=== PATIENT | male | born 1935 | race Caucasian/White ===

== ENCOUNTER → 2016-12-18 | Outpatient (CLI) | payer OTHER, MEDICARE ==
[~2016-12-18] MED LIST: APR10 PO; ASPCH81X PO; LISI-725 PO; METO25TA3 PO; MULT-506 PO; SIMV20TA2 PO
[2016-12-18 13:55] VITALS: BP 114/56; PULSE 58; TEMP 36.4; O2SAT 96
--- NOTE | 2016-12-18 15:25 | Radiation Oncology Follow-Up ---
Radiation Oncology Follow-Up Date of Visit Dec 18, 2016. (Clari Tavarez PA-C) Reason For Visit One-month follow-up (Clari Tavarez PA-C) Radiation Completion Date finished 11-13-2016 (Clari Tavarez PA-C) Diagnosis (1) B-cell lymphoma of extranodal site Status: Resolved Location: right eye Stage: ll Permanent Comment: STAGING: Right eye, B-cell lymphoma Status post completion of radiation therapy 11/13/2016. Received 3,000 cGy Last Edited By: Clari Tavarez on Nov 21, 2016 08:03 (Clari Tavarez PA-C) History of Present Illness Mr. Love is a 81-year-old gentleman with a previous diagnosis of low-grade non-Hodgkin's lymphoma diagnosed in 1999. He has had no active treatment for his lymphoma and has done well. He has had a right supraclavicular lymph node excised in the past. More recently, the patient was evaluated by Dr. Baltazar, his center receptionist, who did notice a cystic lesion in the right superior conjunctiva underneath the right eyelid. Dr. Baltazar did recommend an excisional biopsy which was completed on 08/20/2016 and was sent down for second opinion consultation and confirmed to be B-cell lymphoma. The patient subsequently had a PET/CT scan on 09/12/2016 which did reveal an indeterminate left cervical to lymph node which could potentially be inflammatory/reactive versus neoplastic but no other evidence of metabolic uptake. The patient was seen by Dr. Bee who recommended radiation therapy to the right conjunctiva and observation of the right cervical lymph node. We are now seeing the patient in consultation to discuss the role of radiation therapy. Overall, the patient is doing relatively well. He denies any visual disturbances at this point. He states he has no constitutional night sweats, weight loss or fevers. He has no other complaints. He was treated with radiation alone. This was completed 11/13/2016. He received 3 ,000 cGy. (Clari Tavarez PA-C) Interim History He has been doing well over the past month. He did have some excess tearing of the eye. He had some mild feeling of irritation. He did notice swelling in the lower eyelid in the morning which resolved throughout the day. He had no purulent drainage. No signs of infection. He feels he may have lost a few eyelashes. There were no changes the eyebrows. No problems with nasal drainage. He was seen today by his center receptionist. Examination was performed and he was told that there is no evidence of lymphoma recurrence. There was some irritated changes in the right lower canalicular system. There was some blockage of his lacrimal duct and this was flushed. He had some turning in of a few of his eyelashes which were removed by the center receptionist. See his scanned in note. (Clari Tavarez PA-C) Allergies Coded Allergies: Iodine (Verified Allergy, Unknown, SWELLING, 08/20/16) Iodinated Diagnostic Agents (Verified Adverse Reaction, Severe, Swelling , 09/25/16) Home Medications Scheduled Aspirin (Aspirin Chewable), 81 MG PO QPM Hydralazine HCl (Hydralazine HCl), 1 TAB PO BID Lisinopril (Zestril), 20 MG PO QPM Metoprolol Succ (Toprol Xl) (Toprol-Xl), 0.5 TAB PO QAM Multivitamin (Multivitamin), 1 TAB PO QAM Simvastatin (Zocor), 20 MG PO QPM Review of Systems Gastrointestinal: Symptoms: WNL Oral: Symptoms: No Problems Respiratory: Symptoms: WNL Urinary: Symptoms: Nocturia Comments: nocturia times 1 Skin: Other Skin Symptoms: right eye slightly pink (Clari Tavarez PA-C) Physical Exam Vital Signs Date Time Temp Pulse Resp B/P Pulse Ox O2 Delivery O2 Flow Rate FiO2 12/18/16 13:55 36.4 58 16 114/56 96 Pain: Side: Bilateral Patient Pain Scale: 0 - 10 Initial Pain Intensity: 0.0 General Appearance: no apparent distress Eyes: normal inspection, EOMI, + pertinent finding (there is very mild erythema of the conjunctiva on the inner aspect of the upper right eyelid. There are no visible lesions noted. There is no exudate. Currently he has no edema of the lower eyelid.) ENT: normal ENT inspection, hearing grossly normal (Clari Tavarez PA-C) Assessment & Plan Plan: Patient was also seen and examined by Dr. Perez. He will be seeing Dr. Bee in 2 weeks. Recheck scanning and laboratory studies per Dr. Bee. Continue follow-up with the center receptionist. We asked him to return to our office in 9 months. He may call if he has any questions or concerns in the interim. (Clari Tavarez PA-C) I agree with note created by Clari Tavarez PA-C. I reviewed the patient's chart and information with her. I have examined and evaluated the patient. I reviewed relevant clinical information and answered the patient's and/or family' s questions. (Veeral. Perez MD) Total Time In Follow-Up I spent 15 minutes speaking to the patient performing examination. I spent 15 minutes reviewing information in completing this note. (Clari Tavarez PA-C) I spent 15 minutes examining and counseling the patient. (Veeral. Perez MD) Copy To Nicolas Santillan MD; Ismael Grimes III, M.D.; Chino Bee M.D.
== END | disposition home or self-care (01) ==
LOC: C.ONC 13:45
PROVIDERS: ATTEND Radiology Radiation Oncology
DX: Z08 Encounter for follow-up examination after completed treatment for malignant neoplasm (principal); Z92.3 Personal history of irradiation; Z85.72 Personal history of non-Hodgkin lymphomas

== ENCOUNTER → 2017-08-13 | Outpatient (CLI) | payer OTHER, MEDICARE ==
[2017-08-13 13:36] VITALS: BP 132/64; PULSE 56; TEMP 37; O2SAT 97
--- NOTE | 2017-08-13 14:29 | Radiation Oncology Follow-Up ---
Radiation Oncology Follow-Up Date of Visit Aug 13, 2017. Reason For Visit 6 month follow-up Radiation Completion Date 11/13/16 Diagnosis (1) B-cell lymphoma of extranodal site Status: Resolved Stage: ll Permanent Comment: STAGING: Right eye, B-cell lymphoma Status post completion of radiation therapy 11/13/2016. Received 3,000 cGy Last Edited By: Clari Tavarez on Nov 21, 2016 08:03 History of Present Illness Mr. Love has a previous diagnosis of low-grade non-Hodgkin's lymphoma diagnosed in 1999. He has had no active treatment for his lymphoma and has done well. He has had a right supraclavicular lymph node excised in the past. More recently, the patient was evaluated by Dr. Baltazar, his physician extender, who did notice a cystic lesion in the right superior conjunctiva underneath the right eyelid. Dr. Baltazar did recommend an excisional biopsy which was completed on 08/20/2016 and was sent down for second opinion consultation and confirmed to be B-cell lymphoma. The patient subsequently had a PET/CT scan on 2015 which did reveal an indeterminate left cervical to lymph node which could potentially be inflammatory/reactive versus neoplastic but no other evidence of metabolic uptake. The patient was seen by Dr. Bee who recommended radiation therapy to the right conjunctiva and observation of the right cervical lymph node. We are now seeing the patient in consultation to discuss the role of radiation therapy. Overall, the patient is doing relatively well. He denies any visual disturbances at this point. He states he has no constitutional night sweats, weight loss or fevers. He has no other complaints. He was treated with radiation alone. This was completed 11/13/2016. He received 3 ,000 cGy Interim History He's been followed closely by his physician extender. He does have problems with excess tearing from the right eye. He has blockage of the tear duct. On 2 occasions since our last visit this has been opened. He describes a saline lavage. The ductal will stay open for approximately 2 days and then will close. It has been suggested that he may benefit from placement of a stent. The patient declines to undergo placement of the lacrimal duct stent. His vision is unchanged. He did lose a small portion of the eyebrow which then grew back over time. There were minimal changes to the eyelashes. Allergies Coded Allergies: Iodine (Verified Allergy, Unknown, SWELLING, 08/20/16) Iodinated Diagnostic Agents (Verified Adverse Reaction, Severe, Swelling , 09/25/16) Home Medications Scheduled Aspirin (Aspirin Chewable), 81 MG PO QPM Hydralazine HCl (Hydralazine HCl), 1 TAB PO BID Lisinopril (Zestril), 20 MG PO QPM Metoprolol Succ (Toprol Xl) (Toprol-Xl), 0.5 TAB PO QAM Multivitamin (Multivitamin), 1 TAB PO QAM Simvastatin (Zocor), 20 MG PO QPM Review of Systems Gastrointestinal: Symptoms: WNL Oral: Symptoms: No Problems Respiratory: Symptoms: WNL Urinary: Symptoms: WNL Skin: Symptoms: No Problems Physical Exam Vital Signs Date Time Temp Pulse Resp B/P (MAP) Pulse Ox O2 Delivery O2 Flow Rate FiO2 08/13/17 13:36 37.0 56 12 132/64 97 Fatigue: None General Appearance: no apparent distress Eyes: normal inspection, EOMI, + pertinent finding (there is no erythema of the medial conjunctiva or the inner aspect of the upper eyelid.) ENT: normal ENT inspection, hearing grossly normal Respiratory/Chest: lungs clear Cardiovascular: regular rate, rhythm, no gallop, no murmur Assessment & Plan Plan: Continue regular follow-up with Dr. Bee, Dr. Santillan, and Dr. Grimes. Recheck laboratory studies in scanning per Dr. Bee. He was seen and examined by Dr. Perez. We asked him to return to our office in 1 year. He may call if he has any questions or concerns in the interim. Assessment & Plan (Attending) ADDENDUM: I agree with note created by Clari Tavarez PA-C. I reviewed the patient's chart and information with her. I have examined and evaluated the patient. I reviewed relevant clinical information and answered the patient's and /or family's questions. COMPUTER SOFTWARE ENGINEER Total Time In Follow-Up I spent 15 minutes speaking to the patient and performing examination. I spent 15 minutes reviewing information in completing this note. Total Time (Attending) In Follow-Up I spent 15 minutes examining and counseling the patient. COMPUTER SOFTWARE ENGINEER Copy To Nicolas Santillan MD; Ismael Grimes III, M.D.; Chino Bee M.D.
== END | disposition home or self-care (01) ==
LOC: C.ONC 13:28
PROVIDERS: ATTEND Physician Assistant Medical
DX: Z08 Encounter for follow-up examination after completed treatment for malignant neoplasm (principal); Z92.3 Personal history of irradiation; Z85.72 Personal history of non-Hodgkin lymphomas